=== PATIENT | female | born 1965 | race Hispanic/Latino ===

== ENCOUNTER 2019-12-18 13:16 | Emergency (ER) | payer OTHER ==
[2019-12-18] MEDS ORDERED: ACETAMINOPHEN 325 MG TAB ONE (13:36)
[2019-12-18 14:46] VITALS: BP 152/92
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
[2019-12-18] MEDS ORDERED: ACETAMINOPHEN 325 MG TAB PO ONE (15:20)
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
== END 2019-12-18 16:32 | disposition home or self-care (01) ==
LOC: ED 13:16
DX: S16.1XXA Strain of muscle, fascia and tendon at neck level, initial encounter (principal); S00.03XA Contusion of scalp, initial encounter; R51 Headache; Z88.2 Allergy status to sulfonamides; V49.49XA Driver injured in collision with other motor vehicles in traffic accident, initial encounter; Y92.410 Unspecified street and highway as the place of occurrence of the external cause; Y93.89 Activity, other specified; Y99.8 Other external cause status
CPT/HCPCS: 70450; 72125